=== PATIENT | male | born 1960 | race Caucasian/White ===

== ENCOUNTER → 2022-07-01 11:43 | Outpatient (BNVA) | payer OTHER, SELFPAY | PROVIDERS: Visit Provider Student in an Organized Health Care Education/Training Program | DX: M16.12 Unilateral primary osteoarthritis, left hip (principal) | CPT/HCPCS: 73502 ==

== ENCOUNTER → 2022-07-29 09:07 | Outpatient (BNVA) | payer OTHER, SELFPAY | PROVIDERS: Visit Provider Student in an Organized Health Care Education/Training Program | DX: M16.9 Osteoarthritis of hip, unspecified (principal) | CPT/HCPCS: 77002 ==

== ENCOUNTER → 2022-11-05 10:12 | Outpatient (BNVA) | payer OTHER, SELFPAY | PROVIDERS: Visit Provider Student in an Organized Health Care Education/Training Program | DX: M16.12 Unilateral primary osteoarthritis, left hip (principal); Z01.818 Encounter for other preprocedural examination | CPT/HCPCS: 80053; 81003; 85025 ==

== ENCOUNTER → 2022-11-13 10:14 | Outpatient (BNVA) | payer OTHER, SELFPAY | PROVIDERS: Visit Provider Family Medicine | DX: Z01.818 Encounter for other preprocedural examination (principal) | CPT/HCPCS: 80048; 85025 ==

== ENCOUNTER 2022-11-22 07:41 | Outpatient (CLI) | payer OTHER, SELFPAY ==
--- NOTE | 2022-11-22 08:00 | CT_ITS ---
WS: [id number] CT LEFT HIP NONCONTRAST TECHNIQUE: Noncontrast CT of the LEFT hip to include the LEFT knee and ankle. CLINICAL INFORMATION: LEFT TOTAL HIP ARTHROPLASTY COMPARISON: None. DLP: 800.[address] scans at [facility] use at least one of these dose optimization techniques: automated e xposure control; mA and/or kV adjustment per patient size (includes targeted exams where dose is matc hed to clinical indication); or iterative reconstruction. FINDINGS: Advanced joint space narrowing LEFT hip. Subchondral cystic change involving the LEFT acetabulum and femoral head with sclerosis. Mild to moderate narrowing RIGHT hip. Sigmoid diverticulosis. Aortic aime cification. Prostate calcification. Prominent prostate measuring 5.1 cm. 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 Recommend further evaluation wit h CTA or ultrasound. IMPRESSION: 1. Images obtained for preoperative purposes. 2. 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 Recommend further evaluation with CTA or ultrasound.
== END 2022-11-22 07:42 | disposition home or self-care (01) ==
PROVIDERS: PCP Family Medicine; Visit Provider Student in an Organized Health Care Education/Training Program
DX: Z01.818 Encounter for other preprocedural examination (principal); M16.12 Unilateral primary osteoarthritis, left hip; I72.3 Aneurysm of iliac artery
CPT/HCPCS: 73700

== ENCOUNTER 2022-11-22 18:12 | Outpatient (CLI) | payer OTHER, SELFPAY ==
[2022-11-26 21:04] LABS: Cotinine, Urine 358 ng/mL; Nicotine, Urine 923 ng/mL
== END 2022-11-22 18:13 | disposition home or self-care (01) ==
PROVIDERS: PCP Family Medicine; Visit Provider Student in an Organized Health Care Education/Training Program
DX: Z01.818 Encounter for other preprocedural examination (principal)
CPT/HCPCS: 80323